=== PATIENT | male | born 1975 | race Caucasian/White ===

== ENCOUNTER 2022-06-14 10:37 | Emergency (ER) | payer SELFPAY ==
[2022-06-14 11:42] LABS: CORONAVIRUS COVID-19 NAA NEGATIVE (NEGATIVE); RESPIRATORY SYNCYTIAL VIR NAA NEGATIVE (NEGATIVE)
== END 2022-06-14 12:28 | disposition home or self-care (01) ==
LOC: VM.ED 10:37
DX: J44.1 Chronic obstructive pulmonary disease with (acute) exacerbation (principal); F17.210 Nicotine dependence, cigarettes, uncomplicated; Z20.822 Contact with and (suspected) exposure to COVID-19
CPT/HCPCS: 0241U; 99284; 99285

== ENCOUNTER 2024-07-01 14:24 | Emergency (ER) | payer MEDICAID ==
[2024-07-01] MEDS: Lidocaine 2% 5 ML SDV INJECT ONE (14:57)
== END 2024-07-01 15:18 | disposition home or self-care (01) ==
LOC: VM.ED 14:24
DX: L03.011 Cellulitis of right finger (principal); F17.210 Nicotine dependence, cigarettes, uncomplicated; Z79.2 Long term (current) use of antibiotics
CPT/HCPCS: 10160; 73140-F5; 99283; 99283-25; J3490